=== PATIENT | male | born 1995 | race Caucasian/White ===

== ENCOUNTER 2020-02-01 21:21 | Emergency (ER) | payer BC ==
[2020-02-01 21:32] VITALS: TEMP 98.5
--- NOTE | 2020-02-01 22:08 | ED ---
General Adult HPI - General Chief complaint: Chest Pain Stated complaint: Chest Pain, SOB, Elevated HR Time Seen by Provider: 02/01/20 21:35 Source: patient, family, RN notes reviewed, old records reviewed Mode of arrival: wheelchair Limitations: no limitations - History of Present Illness Initial comments: 25-year-old male presenting for evaluation of palpitations, chest pain and dyspnea. Patient states he was at rest, but the dinner developed palpitations, stated his heart rate was around 140. He had developed some left-sided chest tightness and discomfort as well as dyspnea associated with this. No abdominal pain or vomiting. No diaphoresis. No known history of heart or lung problems. No history DVT or PE. - Related Data Allergies Allergy/AdvReac Type Severity Reaction Status Date / Time No Known Allergies Allergy Verified 02/01/20 21:32 Review of Systems ROS Statement: Those systems with pertinent positive or pertinent negative responses have been documented in the HPI. ROS Other: All systems not noted in ROS Statement are negative. Past Medical History Past Medical History: No Reported History History of Any Multi-Drug Resistant Organisms: None Reported Past Surgical History: No Surgical Hx Reported Smoking Status: Never smoker Past Alcohol Use History: None Reported Past Drug Use History: None Reported General Exam Limitations: no limitations General appearance: alert, in no apparent distress Head exam: Present: atraumatic, normocephalic Eye exam: Present: PERRL ENT exam: Present: normal exam Neck exam: Present: normal inspection. Absent: tenderness Respiratory exam: Present: normal lung sounds bilaterally. Absent: respiratory distress Cardiovascular Exam: Present: regular rate, normal rhythm GI/Abdominal exam: Present: soft. Absent: distended, tenderness Extremities exam: Present: normal inspection, normal capillary refill. Absent: pedal edema Back exam: Present: normal inspection Neurological exam: Present: alert, oriented X3, CN II-XII intact. Absent: motor sensory deficit Psychiatric exam: Present: normal affect, normal mood Skin exam: Present: warm, dry, intact. Absent: cyanosis, diaphoretic Course Vital Signs 02/01/20 02/01/20 21:26 22:43 Temperature 98.5 F Pulse Rate 101 H 89 Respiratory 18 18 Rate Blood Pressure 139/90 127/85 O2 Sat by Pulse 98 100 Oximetry EKG Findings - EKG Comments: EKG Findings:: EKG: Normal sinus rhythm with sinus arrhythmia, rate of 86, WI interval 190, QRS duration 108, QTC 442, no ST segment elevation, S1 q3 T3 pattern. Medical Decision Making - Medical Decision Making 25-year-old male otherwise healthy with an episode of palpitation, chest pain dyspnea. EKG is sinus rhythm, CBC within normal limits, CMP does show mildly elevated blood sugar was 60 otherwise unremarkable, negative troponin, chest x- ray negative for acute cardio palmar findings, CT angiography is obtained given the EKG findings of S1 every 3 T3 1 complaints of dyspnea and palpitations. This is negative for pulmonary embolism. Patient feeling completely better on reevaluation no symptoms. He does have follow-up with his primary care physician and proximally 4 days. He will return with any worsening or changing symptoms. - Lab Data Result diagrams: 02/01/20 22:03 02/01/20 22:03 Lab Results 02/01/20 02/01/20 02/01/20 Range/Units 22:03 22:03 22:03 WBC 11.4 H (3.8-10.6) k/uL RBC 4.88 (4.30-5.90) m/uL Hgb 15.2 (13.0-17.5) gm/dL Hct 44.8 (39.0-53.0) % MCV 91.8 (80.0-100.0) fL MCH 31.1 (25.0-35.0) pg MCHC 33.9 (31.0-37.0) g/dL RDW 12.0 (11.5-15.5) % Plt Count 259 (150-450) k/uL Neutrophils % 75 % Lymphocytes % 18 % Monocytes % 5 % Eosinophils % 1 % Basophils % 1 % Neutrophils # 8.5 H (1.3-7.7) k/uL Lymphocytes # 2.0 (1.0-4.8) k/uL Monocytes # 0.6 (0-1.0) k/uL Eosinophils # 0.1 (0-0.7) k/uL Basophils # 0.1 (0-0.2) k/uL PT 10.4 (9.0-12.0) sec INR 1.0 (<1.2) APTT 22.7 (22.0-30.0) sec Sodium 135 L (137-145) mmol/L Potassium 3.5 (3.5-5.1) mmol/L Chloride 103 (98-107) mmol/L Carbon Dioxide 22 (22-30) mmol/L Anion Gap 10 mmol/L BUN 13 (9-20) mg/dL Creatinine 0.92 (0.66-1.25) mg/dL Est GFR (CKD-EPI)AfAm >90 (>60 ml/min/1.73 sqM) Est GFR (CKD-EPI)NonAf >90 (>60 ml/min/1.73 sqM) Glucose 160 H (74-99) mg/dL Calcium 9.5 (8.4-10.2) mg/dL Magnesium 1.9 (1.6-2.3) mg/dL Total Bilirubin 0.5 (0.2-1.3) mg/dL AST 27 (17-59) U/L ALT 43 (4-49) U/L Alkaline Phosphatase 62 (38-126) U/L Troponin I (0.000-0.034) ng/mL Total Protein 7.2 (6.3-8.2) g/dL Albumin 4.6 (3.5-5.0) g/dL 02/01/20 Range/Units 22:03 WBC (3.8-10.6) k/uL RBC (4.30-5.90) m/uL Hgb (13.0-17.5) gm/dL Hct (39.0-53.0) % MCV (80.0-100.0) fL MCH (25.0-35.0) pg MCHC (31.0-37.0) g/dL RDW (11.5-15.5) % Plt Count (150-450) k/uL Neutrophils % % Lymphocytes % % Monocytes % % Eosinophils % % Basophils % % Neutrophils # (1.3-7.7) k/uL Lymphocytes # (1.0-4.8) k/uL Monocytes # (0-1.0) k/uL Eosinophils # (0-0.7) k/uL Basophils # (0-0.2) k/uL PT (9.0-12.0) sec INR (<1.2) APTT (22.0-30.0) sec Sodium (137-145) mmol/L Potassium (3.5-5.1) mmol/L Chloride (98-107) mmol/L Carbon Dioxide (22-30) mmol/L Anion Gap mmol/L BUN (9-20) mg/dL Creatinine (0.66-1.25) mg/dL Est GFR (CKD-EPI)AfAm (>60 ml/min/1.73 sqM) Est GFR (CKD-EPI)NonAf (>60 ml/min/1.73 sqM) Glucose (74-99) mg/dL Calcium (8.4-10.2) mg/dL Magnesium (1.6-2.3) mg/dL Total Bilirubin (0.2-1.3) mg/dL AST (17-59) U/L ALT (4-49) U/L Alkaline Phosphatase (38-126) U/L Troponin I <0.012 (0.000-0.034) ng/mL Total Protein (6.3-8.2) g/dL Albumin (3.5-5.0) g/dL Disposition Clinical Impression: Palpitation Disposition: HOME SELF-CARE Condition: Good Instructions (If sedation given, give patient instructions): Heart Palpitations (ED) Is patient prescribed a controlled substance at d/c from ED?: No Referrals: Lauro Hitchcock MD [Primary Care Provider] - 1-2 days Time of Disposition: 23:04
[2020-02-01 22:12] LABS: Basophils # (A) 0.1 k/uL (0-0.2); Basophils % (A) 1 %; Eosinophils # (A) 0.1 k/uL (0-0.7); Eosinophils % (A) 1 %; HCT 44.8 % (39.0-53.0); HGB 15.2 gm/dL (13.0-17.5); Lymphocytes % (A) 18 %; MCH 31.1 pg (25.0-35.0); MCHC 33.9 g/dL (31.0-37.0); MCV 91.8 fL (80.0-100.0); Mean Platelet Volume 6.4; Monocytes # (A) 0.6 k/uL (0-1.0); Monocytes % (A) 5 %; Neutrophils # (A) 8.5 k/uL (1.3-7.7); Neutrophils % (A) 75 %; Platelet Count 259 k/uL (150-450); RBC 4.88 m/uL (4.30-5.90); WBC 11.4 k/uL (3.8-10.6)
[2020-02-01 22:21] LABS: ALT 43 U/L (4-49); AST 27 U/L (17-59); African American GFR (CKD) >90 (>60 ml/min/1.73 sqM); Albumin 4.6 g/dL (3.5-5.0); Alkaline Phosphatase 62 U/L (38-126); Anion Gap 10 mmol/L; Blood Urea Nitrogen 13 mg/dL (9-20); Calcium 9.5 mg/dL (8.4-10.2); Carbon Dioxide 22 mmol/L (22-30); Chloride 103 mmol/L (98-107); Glucose 160 mg/dL (74-99); Magnesium 1.9 mg/dL (1.6-2.3); Non-African American GFR(CKD) >90 (>60 ml/min/1.73 sqM); Potassium 3.5 mmol/L (3.5-5.1); Sodium 135 mmol/L (137-145); Total Bilirubin 0.5 mg/dL (0.2-1.3); Total Protein 7.2 g/dL (6.3-8.2)
--- NOTE | 2020-02-01 22:21 | XR ---
EXAMINATION TYPE: XR chest 2V DATE OF EXAM: 02/01/2020 COMPARISON: NONE HISTORY: Chest pain TECHNIQUE: FINDINGS: Heart is normal. Lungs are clear. Costophrenic angles are clear. There are no hilar masses. Bony thorax is intact. IMPRESSION: Normal chest.
[2020-02-01 22:32] LABS: Partial Thromboplastin Time 22.7 sec (22.0-30.0); Prothrombin Time 10.4 sec (9.0-12.0)
--- NOTE | 2020-02-01 22:50 | CT ---
EXAMINATION TYPE: CT angio chest DATE OF EXAM: 02/01/2020 COMPARISON: None HISTORY: CP, elevated HR CT DLP: 916.6 mGycm Automated exposure control for dose reduction was used. CONTRAST: Performed with IV Contrast, patient injected with 100 mL of Isovue 370. There are 3-D post processed images. The lungs are clear of consolidation. There is mild subsegmental atelectasis in the posterior lung fi elds. There is no pleural effusion. There is no evidence of pulmonary mass. Upper abdominal soft tiss ues are intact. Heart is top normal in size. There is no pericardial effusion. There is normal contrast opacification of the pulmonary arteries. There are no filling defects. There is no mediastinal adenopathy. There a re no hilar masses. Thoracic aorta is intact. The bony thorax is intact. There is spurring in the thoracic spine. IMPRESSION: No evidence of pulmonary embolism. Moderate spurring in the thoracic spine in this relatively young p atient.
[2020-02-01 23:14] VITALS: BP 126/89; PULSE 85; RESP 16
== END 2020-02-01 23:17 | disposition home or self-care (01) ==
LOC: EC 21:21
DX: R00.2 Palpitations (principal); R06.00 Dyspnea, unspecified; R07.9 Chest pain, unspecified
CPT/HCPCS: 36415; 93005; 80053; 83735; 84484; 85025; 85610; 85730; 71046; 71275; 99285; Q9967

== ENCOUNTER → 2020-03-10 | Outpatient (CLI) | payer BC ==
--- NOTE | 2020-03-19 13:08 | EM ---
This is a report on the seven-day given monitor. Baseline EKG showed sinus rhythm with episodes of sinus bradycardia and the heart rates are around 50-70. Occasional PVCs are noted. One episode of the plate of APCs noted. Patient did not report any specific symptoms. Final impression: #1. Sinus rhythm. #2. Sinus bradycardia. #3 occasional PVCs. #4. Occasional APCs with one triplet. #5. Patient did not give any specific symptoms MTDD
== END | disposition home or self-care (01) ==
LOC: RADECHMAIN 11:46
PROVIDERS: ATTEND Family Medicine
DX: R00.1 Bradycardia, unspecified (principal); R55 Syncope and collapse
CPT/HCPCS: 93270

== ENCOUNTER → 2021-11-16 | Outpatient (CLI) | payer BC ==
--- NOTE | 2021-11-16 14:49 | US ---
EXAMINATION TYPE: US scrotum with doppler. Grayscale and color Doppler Duplex imaging performed of t he scrotum. DATE OF EXAM: 11/16/2021 COMPARISON: NONE CLINICAL HISTORY: N50.812 LT TESTICULAR PAIN. Left side pain x 6 days. No injury. No swelling. EXAM MEASUREMENTS: TESTICLES: Right Testicle: 4.4 x 3.5 x 2.8 cm Left Testicle: 4.2 x 3.7 x 2.6 cm EPIDIDYMIS HEAD: Right Epididymis: 1.5 x 0.9 x 0.7 cm Left Epididymis: 1.2 x 0.9 x 0.6 cm Doppler performed to assess for testicular vascularity; good bilateral color flow and waveforms are s een. There is no evidence of testicular torsion. Presence of hydroceles: Right Presence of varicoceles: No Left inguinal area scanned. Possible hernia, bowel visualized lateral to left teste and was moving w ith patient breathing and valsalva. IMPRESSION: 1. Left inguinal hernia containing loops of bowel. 2. Small right hydrocele. 3. Scrotal ultrasound is otherwise unremarkable.
== END | disposition home or self-care (01) ==
LOC: RADUSWWP 12:56
PROVIDERS: ATTEND Family Medicine
DX: K40.90 Unilateral inguinal hernia, without obstruction or gangrene, not specified as recurrent (principal); N43.3 Hydrocele, unspecified
CPT/HCPCS: 76870; 93975